=== PATIENT | male | born 1965 | race Caucasian/White ===

== ENCOUNTER → 2020-07-14 10:40 | Outpatient (CLI) | payer OTHER, SELFPAY ==
--- NOTE | ~2020-07-14 | XR_ITS ---
EXAMINATION: XR chest 2V DATE: 07/14/2020 11:31 INDICATION: Malignant neoplasm of bladder and kidney. TECHNIQUE: Frontal and lateral views of the chest were obtained. COMPARISON: Chest 2 views 08/06/2019, CT abdomen and pelvis 07/14/2020 FINDINGS: The chest demonstrates clear lungs without pneumonia, pleural effusion, or pneumothorax. Th e heart size is normal. IMPRESSION: 1. No acute cardiopulmonary disease. Reviewed, dictated and finalized at location B. CAL [employer] MANUFACTURING TECH
--- NOTE | ~2020-07-14 | CT_ITS ---
EXAMINATION: CT abdomen pelvis wo/w con DATE: 07/14/2020 11:32 INDICATION: Transitional cell cancer of right kidney. TECHNIQUE: Computed tomography (CT) of the abdomen and pelvis was performed without and with intraven ous contrast using a total of 130 mL Omnipaque-350 intravenous contrast with a double-bolus technique for simultaneous opacification of the renal parenchyma and renal collecting system. Automated exposu re control and iterative reconstruction technique were employed. The dose-length product was 2590.83 mGy-cm. COMPARISON: CT abdomen and pelvis 08/06/2019, 03/13/2016 FINDINGS: The visualized portions of the lung bases demonstrate minimal atelectasis. No pleural effusion. The h eart size is normal. No pericardial effusion. There is diffuse hepatic steatosis. Calcifications in t he liver and spleen are consistent with old granulomatous disease. The gallbladder is normal. There a re calcifications in the tail of the pancreas, consistent with chronic pancreatitis. The adrenal glan ds are normal. There are changes of right nephrectomy. Left kidney is normal. There is no urolithiasi s. Left ureter is well opacified and is normal. The prostate is mildly enlarged. There are small bila teral inguinal hernias containing fat. There is diverticulosis of the colon without evidence of diver ticulitis. There are no dilated loops of bowel. There is mild periportal lymphadenopathy, stable from 03/13/2016, likely reactive. There is no free intraperitoneal fluid. There is mild thoracolumbar spon dylosis. IMPRESSION: 1. No evidence of metastatic disease. Reviewed, dictated and finalized at location B. ING MANAGER
[2020-07-14 11:02] LABS: Estimated Glomerular Filt Rate 57
== END ==
PROVIDERS: Visit Provider Urology
DX: Z85.51 Personal history of malignant neoplasm of bladder (principal)
CPT/HCPCS: 71046; 74178; Q9967

== ENCOUNTER 2020-12-12 10:58 | Outpatient (CLI) | payer OTHER, SELFPAY | END 2020-12-12 10:59 | disposition home or self-care (01) | LOC: ANHCOVIDVC 10:58 | PROVIDERS: PCP Family Medicine | DX: Z23 Encounter for immunization (principal) | CPT/HCPCS: 0001A; 91300 ==

== ENCOUNTER 2021-01-02 10:59 | Outpatient (CLI) | payer OTHER, SELFPAY | END 2021-01-02 11:00 | disposition home or self-care (01) | LOC: ANHCOVIDVC 11:00 | PROVIDERS: PCP Family Medicine | DX: Z23 Encounter for immunization (principal) | CPT/HCPCS: 0002A; 91300 ==

== ENCOUNTER 2021-07-17 08:25 | Outpatient (CLI) | payer OTHER, SELFPAY ==
--- NOTE | ~2021-07-17 | CT_ITS ---
EXAMINATION: CT abdomen pelvis wo/w con EXAM DATE: 07/17/2021 09:48 INDICATION: History of malignant bladder cancer. Kidney cancer. TECHNIQUE: Spiral CT of the abdomen and pelvis was performed without contrast. The patient was then injected with small bolus intravenous Omnipaque 350, followed by delay of approximately 10 minutes to allow collecting system to opacify. A post contrast scan abdomen and pelvis was performed during inj ection of remaining contrast. A total of 130 cc intravenous contrast was administered. The dose-delvin th product (DLP) for this examination was 3062.43 mGy-cm. The exposure was tailored according to pat ient size (auto mA exposure control), and iterative reconstruction (ASIR) was used as additional dose reduction technique. Comparison is made to prior examination from 07/14/2020. FINDINGS: Status post right-sided nephrectomy. Stable postoperative surgical bed. There is punctate left inferior calyceal nonobstructing stone. No left hydronephrosis. The calyces and opacified port ions of ureters are unremarkable, without filling defects or focal suspicious strictures. The bladde r is unremarkable. The prostate is unremarkable. Several pancreatic tail calcifications, chronic pancreatitis. The liver, spleen, adrenal glands are u nremarkable. Gallbladder is unremarkable. No biliary obstruction. Several borderline sized peripor nena lymph nodes are stable, probably reactive. There is mild scattered arteriosclerotic disease. Tin y subumbilical fat-containing hernias. The appendix is not positively visualized. There is no pericecal inflammatory change to suggest appe ndicitis. The stomach and small bowel are unremarkable. There is expected amount of colonic stool. There is mild sigmoid colonic diverticulosis. There is no adjacent inflammatory change to suggest d iverticulitis. The heart is normal in size. There are no pericardial or pleural effusions. The lung bases are unremarkable. There are no osteoblastic or osteolytic lesions identified. IMPRESSION: 1. Stable surgical changes from right-sided nephrectomy. 2. Mild colonic diverticulosis. 3. Chronic pancreatitis. Reviewed, dictated and finalized at location B. [employer] OPENING [employer] PICKING
--- NOTE | ~2021-07-17 | XR_ITS ---
XR chest 2V DATE: 07/17/2021 08:42 INDICATION: Malignant bladder lesion TECHNIQUE: PA and lateral views COMPARISON: 07/14/2020 2 view chest FINDINGS: Normal heart size. No hilar or mediastinal enlargement. No pulmonary infiltrate or consolid ation, pleural effusion or pulmonary vascular congestion or pneumothorax. Surgical clips overlie the upper abdomen. IMPRESSION: No active cardiopulmonary disease Reviewed, dictated and finalized at location A. NESS NURSE RN
[2021-07-17 09:27] LABS: Estimated Glomerular Filt Rate > 60
== END 2021-07-17 08:26 | disposition home or self-care (01) ==
PROVIDERS: PCP Family Medicine; Visit Provider Urology
DX: Z85.51 Personal history of malignant neoplasm of bladder (principal); K57.30 Diverticulosis of large intestine without perforation or abscess without bleeding; K85.90 Acute pancreatitis without necrosis or infection, unspecified
CPT/HCPCS: 71046; 74178; Q9967

== ENCOUNTER 2021-11-22 09:01 | Outpatient (CLI) | payer OTHER, SELFPAY ==
[2021-11-22 12:46] LABS: Free T4 Free Thyroxine 1.43 ng/mL (0.78-2.19)
[2021-11-22 13:01] LABS: Thyroid Stimulating Hormone < 0.015 uIU/mL (0.465-4.680)
== END 2021-11-22 09:02 | disposition home or self-care (01) ==
PROVIDERS: PCP Family Medicine; Referring Provider Internal Medicine Endocrinology, Diabetes & Metabolism; Visit Provider Internal Medicine Endocrinology, Diabetes & Metabolism
DX: E05.90 Thyrotoxicosis, unspecified without thyrotoxic crisis or storm (principal); E04.9 Nontoxic goiter, unspecified
CPT/HCPCS: 36415; 84439; 84443; 84481

== ENCOUNTER 2022-02-22 11:45 | Outpatient (CLI) | payer OTHER, SELFPAY ==
[2022-02-22 13:16] LABS: Free T4 Free Thyroxine 0.64 ng/mL (0.78-2.19)
[2022-02-22 13:57] LABS: Thyroid Stimulating Hormone 0.456 uIU/mL (0.465-4.680)
[2022-02-27 14:49] LABS: Thyroid Stimulating Immunoglob 332 % baseline (<140)
== END 2022-02-22 11:46 | disposition home or self-care (01) ==
LOC: ANHWCLAB 11:47
PROVIDERS: PCP Family Medicine; Referring Provider Internal Medicine Endocrinology, Diabetes & Metabolism; Visit Provider Internal Medicine Endocrinology, Diabetes & Metabolism
DX: E05.90 Thyrotoxicosis, unspecified without thyrotoxic crisis or storm (principal)
CPT/HCPCS: 36415; 84439; 84443; 84445

== ENCOUNTER 2022-09-09 09:39 | Emergency (ER) | payer OTHER, SELFPAY ==
[2022-09-09 09:44] VITALS: BP 155/101; PULSE 73; RESP 16; TEMP 36.8; O2SAT 100
--- NOTE | 2022-09-09 09:57 | ED.DENTAL ---
HPI - Dental/Oral General Chief complaint: Dental/Oral Stated complaint: Mouth Sore Time Seen by Provider: 09/09/22 10:01 History of Present Illness HPI Narrative: Patient states he had a root canal done 4 days ago and feels that the dentist irritated the top of his mouth now. Patient has tenderness to the top of his mouth. Related Data Home Medications Medication Instructions Recorded Confirmed cyanocobalamin (vitamin B-12) 1,000 mcg PO DAILY 07/21/19 09/09/22 1,000 mcg tablet (Vitamin B-12) cholecalciferol (vitamin D3) 25 1,000 unit PO DAILY 11/17/19 09/09/22 mcg (1,000 unit) capsule Allergies Allergy/AdvReac Type Severity Reaction Status Date / Time No Known Allergies Allergy Verified 09/09/22 09:51 Review of Systems Review of Systems: CONSTITUTIONAL: Denies fever, chills, or sweats. EYES: Denies visual changes, redness, or discharge. ENT: Denies rhinorrhea, congestion, sore throat, or otalgia. CARDIOVASCULAR: Denies chest pain, palpitations, or edema. RESPIRATORY: Denies cough or dyspnea. GASTROINTESTINAL: Denies abdominal pain, nausea, vomiting, or diarrhea. GENITOURINARY: Denies dysuria or hematuria. SKIN: Denies rash or itching. MUSCULOSKELETAL: Denies back pain, joint pain, or myalgia. NEUROLOGIC: Denies headache, numbness, or weakness. PSYCHIATRIC: Denies anxiety or depression. [facility] Past Medical History Medical History (Updated 09/09/22 @ 10:09 by DEMETRICE Jaramillo) Acute non-recurrent maxillary sinusitis Asthma BMI 32.0-32.9,adult BMI 33.0-33.9,adult BMI 34.0-34.9,adult Cancer Colon cancer screening (~05/25/19) Cologuard screening was negative on 05/25/2019. Cologuard screening on 08/07/2022 was positive. The patient will need colonoscopy. Dyshidrotic eczema Elevated liver enzymes AST 29 and ALT 48 06/19/2021. GGT 34, AST 27, ALT 40 on 06/25/2022. Elevated TSH Encounter for prostate cancer screening PSA 0.26 on 06/19/2021. PSA normal at 0.2 on 06/25/2022. Folic acid deficiency (06/25/22) level low at 4.5 on 06/25/2022. H/O: HTN (hypertension) Hyperthyroidism (06/19/21) TSH less than 0.01 with free T4 1.5 and T3 total 257 on 06/19/2021 Leukocytosis WBC 12.0 on 06/19/2021. WBC 10.7 on 06/25/2022. Mixed hyperlipidemia Total cholesterol 181, triglycerides 271, HDL 29 and LDL 113 on 06/25/2022. Obesity (BMI 30.0-34.9) Pharyngitis Positive colorectal cancer screening using Cologuard test Recurrent boils Renal insufficiency, mild BUN 9 with creatinine 0.99 on 06/25/2022. Seasonal allergic rhinitis Vitamin B12 deficiency anemia Level normal at 726 with hemoglobin 16.5 and folic acid 4.2 on 06/25/2022. Family History Family History Father Patient's father is , Onset Age: 78 Family history of cardiovascular disease Grandparent Family history of cardiovascular disease, Onset Age: 60 Family history of malignant neoplasm Family history of dementia Family history of Hodgkin's lymphoma Other Thyroid disease Social History Social History Smoking packs per day: 1 Smoking cigarettes per day: 20.0 Years smoked: 15 Smoking pack-years: 15.00 Smoking status: Current every day smoker Alcohol intake: never Substance use: never Substance use type: does not use Comments At time of signature, agree with nursing past medical, surgical, social and family history. There is no relevant family history pertinent to the presenting complaint Exam Narrative: GENERAL: Well-appearing, well-nourished, and in no acute distress. HEAD: Normocephalic, atraumatic. EYES: PERRLA and EOMI. ENT: Nares clear, no rhinorrhea or epistaxis. Mucous membranes moist. NO MAURICE APICAL SWELLING, TOOTH TENDER TO PALPATION. NO FACIAL SWELLING. NO TRISMUS. ABLE TO OPEN MOUTH FULLY. NO NECK SWELLING OR MARY JO'S ANGINA. NO ABSCESS TO BE DRAINED. Slightly swollen are
== END 2022-09-09 10:10 | disposition home or self-care (01) ==
PROVIDERS: Emergency Provider Nurse Practitioner Family
DX: K04.7 Periapical abscess without sinus (principal); K08.89 Other specified disorders of teeth and supporting structures; K12.0 Recurrent oral aphthae; F17.210 Nicotine dependence, cigarettes, uncomplicated; I10 Essential (primary) hypertension; E05.90 Thyrotoxicosis, unspecified without thyrotoxic crisis or storm; E78.2 Mixed hyperlipidemia; E66.9 Obesity, unspecified; Z68.30 Body mass index [BMI] 30.0-30.9, adult
CPT/HCPCS: 99213; G0463

== ENCOUNTER 2022-09-21 12:31 | Emergency (ER) | payer OTHER, SELFPAY ==
--- NOTE | ~2022-09-21 | US_ITS ---
US venous doppler [facility] DATE: 09/21/2022 13:35 INDICATION: Redness and swelling of left lower extremity TECHNIQUE: Real-time and color flow imaging and Doppler analysis of the veins of the left lower extre mity COMPARISON: None FINDINGS: The left greater saphenous vein is patent. There is spontaneous and phasic flow and normal augmentation and color flow signal and normal compression of the deep veins of the left lower extremi ty. IMPRESSION: No evidence of deep venous thrombosis of left lower extremity Reviewed, dictated and finalized at Location A. Reviewed, dictated and finalized at location B. ISITION PROFESSIONAL
[2022-09-21 12:37] VITALS: BP 149/92; PULSE 64; RESP 16; TEMP 36.1; O2SAT 99
--- NOTE | 2022-09-21 12:49 | ED.EXTPRO ---
HPI - Extremity Problem General Chief complaint: Extremity Problem,Nontraumatic Stated complaint: L leg pain Time Seen by Provider: 09/21/22 12:43 History of Present Illness HPI Narrative: Patient is a 57-year-old male here for evaluation of a lesion on his left lower extremity. Patient states the lesion is red, swollen and painful. It first showed up about 2 weeks ago and has increased in size and severity since. He denies known injury to the leg or break in skin integrity. He has had no fevers, chills, nausea or vomiting. He called his PCP today who recommended ED eval, reportedly to rule out a blood clot. Related Data Home Medications Medication Instructions Recorded Confirmed cyanocobalamin (vitamin B-12) 1,000 mcg PO DAILY 07/21/19 09/18/22 1,000 mcg tablet (Vitamin B-12) cholecalciferol (vitamin D3) 25 1,000 unit PO DAILY 11/17/19 09/18/22 mcg (1,000 unit) capsule fluticasone propionate 50 1 spray intranasal BID 09/18/22 09/18/22 mcg/actuation nasal spray,suspension methimazole 5 mg tablet 5 mg PO DAILY 09/18/22 09/18/22 Allergies Allergy/AdvReac Type Severity Reaction Status Date / Time No Known Allergies Allergy Verified 09/21/22 12:55 Review of Systems Review of Systems: Gen.: Denies fevers or chills Eyes: Denies eye pain or visual change ENT: Denies congestion Respiratory: Denies shortness of breath or cough CV: Denies chest pain or palpitations GI: Denies abdominal pain nausea, emesis or diarrhea denies burning, urgency, frequency or hematuria Musculoskeletal: Reports lesion to left lower extremity Neuro: Denies numbness, tingling, weakness or focal weakness Skin: Denies rash Except as documented, all other systems reviewed and negative [facility] Past Medical History Medical History Acute non-recurrent maxillary sinusitis Asthma BMI 32.0-32.9,adult BMI 33.0-33.9,adult BMI 34.0-34.9,adult Cancer Colon cancer screening (~05/25/19) Cologuard screening was negative on 05/25/2019. Cologuard screening on 08/07/2022 was positive. The patient will need colonoscopy. Dyshidrotic eczema Elevated liver enzymes AST 29 and ALT 48 06/19/2021. GGT 34, AST 27, ALT 40 on 06/25/2022. Elevated TSH Encounter for prostate cancer screening PSA 0.26 on 06/19/2021. PSA normal at 0.2 on 06/25/2022. Folic acid deficiency (06/25/22) level low at 4.5 on 06/25/2022. H/O: HTN (hypertension) Hyperthyroidism (06/19/21) TSH less than 0.01 with free T4 1.5 and T3 total 257 on 06/19/2021 Leukocytosis WBC 12.0 on 06/19/2021. WBC 10.7 on 06/25/2022. Mixed hyperlipidemia Total cholesterol 181, triglycerides 271, HDL 29 and LDL 113 on 06/25/2022. Obesity (BMI 30.0-34.9) Pharyngitis Positive colorectal cancer screening using Cologuard test Recurrent boils Renal insufficiency, mild BUN 9 with creatinine 0.99 on 06/25/2022. Seasonal allergic rhinitis Vitamin B12 deficiency anemia Level normal at 726 with hemoglobin 16.5 and folic acid 4.2 on 06/25/2022. Family History Family History (Reviewed 02/22/22 @ 11:18 by Gabriel Rosa, [facility]) Father Patient's father is , Onset Age: 78 Family history of cardiovascular disease Grandparent Family history of cardiovascular disease, Onset Age: 60 Family history of malignant neoplasm Family history of dementia Family history of Hodgkin's lymphoma Other Thyroid disease Social History Social History Smoking packs per day: 1 Smoking cigarettes per day: 20.0 Years smoked: 10 Smoking pack-years: 10.00 Smoking status: Current every day smoker Tobacco type: cigarettes Alcohol intake: current Alcohol use details: 2 beers monthly Substance use: never Substance use type: does not use Living arrangements: with family Spiritual care concerns: No Exam Narrative: APPEARANCE: Well appearing, no pain in
== END 2022-09-21 14:41 | disposition home or self-care (01) ==
PROVIDERS: Emergency Provider Physician Assistant; PCP Family Medicine
DX: L03.116 Cellulitis of left lower limb (principal); I10 Essential (primary) hypertension; F17.210 Nicotine dependence, cigarettes, uncomplicated
CPT/HCPCS: 10060; 93971; 99284

== ENCOUNTER 2022-10-02 00:13 | Day surgery (SDC) | payer OTHER, SELFPAY ==
[2022-09-18 11:24] VITALS: BMI 31.5
[2022-10-02 09:45] VITALS: BP 127/85; PULSE 90; RESP 20; TEMP 35.6; O2SAT 97
[2022-10-02] MEDS: LACTATED RINGERS 1,000 ML 150 ML IV CONT (09:47)
--- NOTE | 2022-10-02 10:42 | WPDANESEPPF ---
Anes - Initial Pre Proc Eval Procedure: Operation Date: 10/02/22 11:00 Proposed Procedures p Colonoscopy - Brett Thomas MD Date/Time: 10/02/22 10:42 Surgeon: Brett Thomas MD Pre Op Diagnosis: positive cologuard Patient Data Age: 57 Gender: M Height: 1.88 m Weight: 116.2 kg Last Vital Signs Temp 96.1 F L 10/02/22 09:45 Pulse 90 10/02/22 09:45 Resp 20 10/02/22 09:45 BP 127/85 10/02/22 09:45 Pulse Ox 97 10/02/22 09:45 O2 Del Method Room Air 10/02/22 09:45 Allergies Allergy/AdvReac Type Severity Reaction Status Date / Time No Known Allergies Allergy Verified 10/02/22 09:43 Home Medications Medication Instructions Recorded Confirmed Type cyanocobalamin (vitamin B-12) 1,000 mcg PO DAILY 07/21/19 10/02/22 History 1,000 mcg tablet (Vitamin B-12) cholecalciferol (vitamin D3) 25 1,000 unit PO DAILY 11/17/19 10/02/22 History mcg (1,000 unit) capsule albuterol sulfate 90 mcg/actuation 2 puff inhalation Q4H PRN 07/20/21 10/02/22 Rx aerosol inhaler shortness of breath or wheezing #25.5 grams montelukast 10 mg tablet 10 mg PO DAILY #90 tabs 10/30/21 10/02/22 Rx lisinopril 40 mg tablet 40 mg PO DAILY #90 tabs 01/09/22 10/02/22 Rx quetiapine 50 mg tablet 50 mg PO . q.h.s. #30 tabs 03/26/22 10/02/22 Rx amlodipine 5 mg tablet 5 mg PO DAILY #90 tabs 05/08/22 10/02/22 Rx folic acid 1 mg tablet 1 mg PO DAILY #90 tabs 07/24/22 10/02/22 Rx escitalopram oxalate 20 mg tablet 20 mg PO DAILY #90 tabs 08/13/22 10/02/22 Rx fluticasone propionate 50 1 spray intranasal BID 09/18/22 10/02/22 History mcg/actuation nasal spray,suspension methimazole 5 mg tablet 5 mg PO DAILY 09/18/22 10/02/22 History Patient hx anesthesia problems: none Family hx anesthesia problems: none Results Review: All pre-operative results and documents have been reviewed as part of the pre-operative evaluation. [facility] Past Medical History Medical History Acute non-recurrent maxillary sinusitis Asthma BMI 32.0-32.9,adult BMI 33.0-33.9,adult BMI 34.0-34.9,adult Cancer Colon cancer screening (~05/25/19) Cologuard screening was negative on 05/25/2019. Cologuard screening on 08/07/2022 was positive. The patient will need colonoscopy. Dyshidrotic eczema Elevated liver enzymes AST 29 and ALT 48 06/19/2021. GGT 34, AST 27, ALT 40 on 06/25/2022. Elevated TSH Encounter for prostate cancer screening PSA 0.26 on 06/19/2021. PSA normal at 0.2 on 06/25/2022. Folic acid deficiency (06/25/22) level low at 4.5 on 06/25/2022. H/O: HTN (hypertension) Hyperthyroidism (06/19/21) TSH less than 0.01 with free T4 1.5 and T3 total 257 on 06/19/2021 Leukocytosis WBC 12.0 on 06/19/2021. WBC 10.7 on 06/25/2022. Mixed hyperlipidemia Total cholesterol 181, triglycerides 271, HDL 29 and LDL 113 on 06/25/2022. Obesity (BMI 30.0-34.9) Pharyngitis Positive colorectal cancer screening using Cologuard test Recurrent boils Renal insufficiency, mild BUN 9 with creatinine 0.99 on 06/25/2022. Seasonal allergic rhinitis Vitamin B12 deficiency anemia Level normal at 726 with hemoglobin 16.5 and folic acid 4.2 on 06/25/2022. Family History Family History Father Patient's father is , Onset Age: 78 Family history of cardiovascular disease Grandparent Family history of cardiovascular disease, Onset Age: 60 Family history of malignant neoplasm Family history of dementia Family history of Hodgkin's lymphoma Other Thyroid disease Social History Social History (Reviewed 07/24/22 @ 08:55 by Fouzia Hollis, [facility]) Smoking packs per day: 1 Smoking cigarettes per day: 20.0 Years smoked: 10 Smoking pack-years: 10.00 Smoking status: Current every day smoker Tobacco type: cigarettes Alcohol intake: current Alcohol use details: 2 beers monthly Palafox
--- NOTE | 2022-10-02 10:44 | PM.HPGS ---
History of Present Illness History of Present Illness Consent: Risks, benefits, and alternatives have been discussed and questions answered. Patient agrees to proceed with procedure. Chief complaint: positive cologuard Narrative: Florentin Burgos is a 57 year old male here for first colonoscopy, had + cologuard Review of Systems Constitutional: Constitutional: Denies headache(s) and Denies weakness Eyes: Eyes: Denies blurry vision ENT: Reports Normal hearing present, Denies headache(s) and Denies neck pain Cardiovascular: Cardiovascular: Denies chest pain and Denies dyspnea Respiratory: Respiratory: Denies dyspnea Gastrointestinal: Gastrointestinal: Reports no additional gastrointestinal complaints Genitourinary: Genitourinary: Denies dysuria Musculoskeletal: Musculoskeletal: Denies neck pain Integumentary/Breasts: Skin/Breast: Denies dry skin Neurologic: Reports Normal hearing present, Denies headache(s) and Denies weakness Psychiatric: Psychiatric: Denies anxiety Endocrine: Endocrine: Denies change in body appearance Hematologic/Lymphatic: Hematologic/Lymphatic: Denies easy bleeding Allergic/Immunologic: Allergic/Immunologic: Denies urticaria PMFSH Past Medical History Medical History Acute non-recurrent maxillary sinusitis Asthma BMI 32.0-32.9,adult BMI 33.0-33.9,adult BMI 34.0-34.9,adult Cancer Colon cancer screening (~05/25/19) Cologuard screening was negative on 05/25/2019. Cologuard screening on 08/07/2022 was positive. The patient will need colonoscopy. Dyshidrotic eczema Elevated liver enzymes AST 29 and ALT 48 06/19/2021. GGT 34, AST 27, ALT 40 on 06/25/2022. Elevated TSH Encounter for prostate cancer screening PSA 0.26 on 06/19/2021. PSA normal at 0.2 on 06/25/2022. Folic acid deficiency (06/25/22) level low at 4.5 on 06/25/2022. H/O: HTN (hypertension) Hyperthyroidism (06/19/21) TSH less than 0.01 with free T4 1.5 and T3 total 257 on 06/19/2021 Leukocytosis WBC 12.0 on 06/19/2021. WBC 10.7 on 06/25/2022. Mixed hyperlipidemia Total cholesterol 181, triglycerides 271, HDL 29 and LDL 113 on 06/25/2022. Obesity (BMI 30.0-34.9) Pharyngitis Positive colorectal cancer screening using Cologuard test Recurrent boils Renal insufficiency, mild BUN 9 with creatinine 0.99 on 06/25/2022. Seasonal allergic rhinitis Vitamin B12 deficiency anemia Level normal at 726 with hemoglobin 16.5 and folic acid 4.2 on 06/25/2022. Family History Family History Father Patient's father is , Onset Age: 78 Family history of cardiovascular disease Grandparent Family history of cardiovascular disease, Onset Age: 60 Family history of malignant neoplasm Family history of dementia Family history of Hodgkin's lymphoma Other Thyroid disease Social History Social History Smoking packs per day: 1 Smoking cigarettes per day: 20.0 Years smoked: 10 Smoking pack-years: 10.00 Smoking status: Current every day smoker Tobacco type: cigarettes Alcohol intake: current Alcohol use details: 2 beers monthly Substance use: never Substance use type: does not use Living arrangements: with family Spiritual care concerns: No Meds Home Medications and Allergies Home Medications Medication Instructions Recorded Confirmed Type cyanocobalamin (vitamin B-12) 1,000 mcg PO DAILY 07/21/19 10/02/22 History 1,000 mcg tablet (Vitamin B-12) cholecalciferol (vitamin D3) 25 1,000 unit PO DAILY 11/17/19 10/02/22 History mcg (1,000 unit) capsule albuterol sulfate 90 mcg/actuation 2 puff inhalation Q4H PRN 07/20/21 10/02/22 Rx aerosol inhaler shortness of breath or wheezing #25.5 grams montelukast 10 mg tablet 10 mg PO DAILY #90 tabs 10/30/21 10/02/22 Rx lisinopril 40 mg tablet 40 mg PO DAILY
[2022-10-02 11:19] VITALS: BP 92/62; PULSE 82; RESP 24; O2SAT 92
[2022-10-02 11:29] VITALS: BP 98/75; PULSE 80; RESP 16; O2SAT 93
[2022-10-02 11:39] VITALS: BP 103/71; PULSE 65; RESP 16; O2SAT 96
== END 2022-10-02 11:53 | disposition home or self-care (01) ==
PROVIDERS: PCP Family Medicine; Visit Provider Internal Medicine Gastroenterology
PROC: 0DJD8ZZ Inspection of Lower Intestinal Tract, Via Natural or Artificial Opening Endoscopic (ICD-10-PCS; CPT 45378; principal; 2022-10-02 11:00)
DX: R19.5 Other fecal abnormalities (principal); K63.5 Polyp of colon; K62.1 Rectal polyp; K64.8 Other hemorrhoids; I10 Essential (primary) hypertension; J45.909 Unspecified asthma, uncomplicated; L30.1 Dyshidrosis [pompholyx]; E05.90 Thyrotoxicosis, unspecified without thyrotoxic crisis or storm; E78.2 Mixed hyperlipidemia; D51.3 Other dietary vitamin B12 deficiency anemia; E66.9 Obesity, unspecified; Z68.32 Body mass index [BMI] 32.0-32.9, adult; F17.210 Nicotine dependence, cigarettes, uncomplicated
CPT/HCPCS: 45385; 88305; J2704; J7120

== ENCOUNTER 2023-03-19 11:37 | Outpatient (CLI) | payer OTHER, SELFPAY ==
[2023-03-19 13:47] LABS: Free T4 Free Thyroxine 0.93 ng/mL (0.78-2.19)
[2023-03-25 16:42] LABS: Triiodothyronine T3 Free 2.8 pg/mL (2.3-4.2)
== END 2023-03-19 11:38 | disposition home or self-care (01) ==
LOC: ANHWCLAB 11:38
PROVIDERS: PCP Family Medicine; Visit Provider Internal Medicine Endocrinology, Diabetes & Metabolism
DX: E05.90 Thyrotoxicosis, unspecified without thyrotoxic crisis or storm (principal); E04.9 Nontoxic goiter, unspecified
CPT/HCPCS: 36415; 84439; 84443; 84481

== ENCOUNTER 2024-12-09 15:00 | Emergency (ER) | payer OTHER, SELFPAY ==
--- NOTE | ~2024-12-09 | XR_ITS ---
EXAM/PROCEDURE: XR chest 2V - 12/09/2024 15:30 CDT HISTORY: 59 years old Male with cough x 3 days, hx of asthma TECHNIQUE: Two view(s) of the chest. COMPARISON: None available. FINDINGS: LUNGS/ PLEURA: No focal consolidation. No appreciable pneumothorax or large pleural effusion. HEART/ MEDIASTINUM: Heart appears normal in size. BONES: No acute osseous abnormality. OTHER: Visualized upper abdomen is unremarkable. IMPRESSION: No acute process. Reviewed, dictated and finalized at location A. IMPRESSION: No acute process.
[2024-12-09 15:20] VITALS: BP 136/85; PULSE 82; RESP 18; TEMP 36.9; O2SAT 97
[2024-12-09 16:12] LABS: EDCOVIDSCREEN Negative (Negative); EDINFLUASCREEN Negative (Negative); EDINFLUBSCREEN Negative (Negative)
--- NOTE | 2024-12-09 16:14 | ED_ITS ---
HPI - URI/Sore Throat General Chief Complaint: Upper Respiratory Infection Stated Complaint: Cough/Chills/Sinus Time Seen by Provider: 12/09/24 15:55 Source: patient and RN notes reviewed Mode of arrival: ambulatory Limitations: no limitations History of Present Illness HPI Narrative: 59-year-old male presents Express Care complaining of upper respiratory symptoms for 8 days. Patient had a sore throat, cough, congestion. Symptoms were improving however about 2 days ago patient stated his cough got worse he started developing chest congestion and some shortness of breath. Patient states that he has pain with inspiration. Patient denies any chest pain or pain with exertion. Patient has is his pain is reproducible to palpating his sternum. Patient states he is coughing some phlegm up but says that is white and thick. Patient is a pack-a-day smoker for the last 10 years. Patient has a history of hypertension, bladder cancer, and nephrectomy. Patient denies any history of COPD. Related Data Home Medications ?Medication ?Instructions ?Recorded ?Confirmed ?Last Taken ?Type cyanocobalamin (vitamin B-12) 1,000 mcg PO DAILY 07/21/19 03/16/24 Unknown History 1,000 mcg tablet (Vitamin B-12) cholecalciferol (vitamin D3) 25 1,000 unit PO DAILY 11/17/19 03/16/24 Unknown History mcg (1,000 unit) capsule Allergies Allergy/AdvReac Type Severity Reaction Status Date / Time No Known Allergies Allergy Verified 12/09/24 15:07 Review of Systems Review of Systems: CONSTITUTIONAL: Denies fever, chills, or sweats. EYES: Denies visual changes, redness, or discharge. ENT: Denies rhinorrhea, congestion, sore throat, or otalgia. CARDIOVASCULAR: Denies chest pain, palpitations,, syncope or edema. RESPIRATORY: Positive for cough or dyspnea. GASTROINTESTINAL: Denies abdominal pain, nausea, vomiting, or diarrhea. GENITOURINARY: Denies dysuria or hematuria. SKIN: Denies rash or itching. MUSCULOSKELETAL: Denies back pain, joint pain, or myalgia. NEUROLOGIC: Denies headache, numbness, or weakness. PSYCHIATRIC: Denies anxiety or depression. All other systems reviewed are negative, except as documented in HPI. [facility] Past Medical History Medical History Herpes zoster (~01/20/23) right T10 dermatome Acute bronchitis Polyp of colon (10/02/22) 4 polyps of the descending colon, 2 polyps of the sigmoid colon, 3 polyps in the rectum on 10/02/2022 with recheck in 2 years. Positive colorectal cancer screening using Cologuard test Colon cancer screening (~05/25/19) Cologuard screening was negative on 05/25/2019. Cologuard screening on 08/07/2022 was positive. The patient will need colonoscopy. Folic acid deficiency (06/25/22) level low at 4.5 on 06/25/2022. Level normal at 24 on 02/25/2023. Folic acid greater than 24 with hemoglobin 16.8 on 07/29/2023. Pharyngitis BMI 33.0-33.9,adult Obesity (BMI 30.0-34.9) Acute non-recurrent maxillary sinusitis H/O: HTN (hypertension) Cancer Asthma Seasonal allergic rhinitis BMI 32.0-32.9,adult Hyperthyroidism (06/19/21) TSH less than 0.01 with free T4 1.5 and T3 total 257 on 06/19/2021. TSH 2.89 with free T4 0.93 on 03/19/2023. TSH 2.89 with free T4 0.93 and T3 total 2.8 on 07/29/2023. TSH 7.21 with free T4 0.8 and free T3 2.8 on 03/23/2024. Recurrent boils BMI 34.0-34.9,adult Elevated liver enzymes AST 29 and ALT 48 06/19/2021. GGT 34, AST 27, ALT 40 on 06/25/2022. AST 36 with ALT 50 on 07/29/2023. AST 35, ALT 40 on 03/23/2024. Renal insufficiency, mild BUN 9 with creatinine 0.99 on 06/25/2022. Elevated TSH Leukocytosis WBC 12.0 on 06/19/2021. WBC 10.7 on 06/25/2022. Mixed hyperlipidemia Total cholesterol 181, triglycerides 271, HDL 29 and LDL 113 on 06/25/2022. Cholesterol 200, triglycerides 219, HDL 34, LDL 130 with ratio of 5.9 on 02/25/2023. Cholesterol 205, triglycerides 317, HDL 33, LDL 127 with ratio 6.2 on 07/29/2023. Cholesterol 124, triglycerides 201, HDL 30, LDL 66 with ratio 4.1 on 03/23/2024. Encounter for prostate cancer screening PSA 0.26 on 06/19/2021. PSA normal at 0.2 on 06/25/2022. PSA 0.23 on 07/29/2023. Dyshidrotic eczema Vitamin B12 deficiency anemia Level normal at 726 with hemoglobin 16.5 and folic acid 4.2 on 06/25/2022. Level normal at 967 with folic acid 24 on 02/25/2023. Level normal at 967 on 07/29/2023. 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 Family History Family History Father Patient's father is , Onset Age: 78 Family history of cardiovascular disease Grandparent Family history of cardiovascular disease, Onset Age: 60 Family history of malignant neoplasm Family history of dementia Family history of Hodgkin's lymphoma Other Thyroid disease Social History Social History Smoking packs per day: 1 Smoking cigarettes per day: 20.0 Years smoked: 10 Smoking pack-years: 10.00 Smoking status: Current every day smoker Tobacco type: cigarettes Alcohol intake: current Alcohol use details: 2 beers monthly Substance use: never Substance use type: does not use Lack of Transportation: No Lack of Food: Never True Current Housing: I Have Housing Concerned About Future Housing: No Difficulty Paying Gas/Electric Bills: No Difficulty Paying for Meds: No Currently Unemployed: No Education: High School Diploma/GED Difficulty w/ Childcare or Family Care: No Living arrangements: with family Spiritual care concerns: No Comments At the time of my signature, I reviewed and agree with the nursing past medical, surgical, social, and family history. There is no relevant family history pertinent to the patient complaint. Exam Narrative: GENERAL: This is a well-nourished, well-developed adult, in no apparent distress. They are non ill-appearing, nontoxic appearing. HEAD: normocephalic, atraumatic. EYES: Sclera clear/white. Vision is grossly intact. EARS: External ears normal, auditory canals clear and without drainage, TMs normal without perforation. Hearing grossly intact. NOSE: External nose normal with no obvious nasal discharge, nares without redness, no rhinorrhea. THROAT: Mucous membranes moist, posterior pharynx clear. NECK: Neck supple, non-tender without lymphadenopathy, masses or thyromegaly. CARDIOVASCULAR: Regular rate and rhythm without murmurs, gallops, or rubs. RESPIRATORY: End expiratory wheezing present to the lower lobes. Lungs are coarse throughout. Breath sounds equal bilaterally. Normal respiratory rate, nonlabored breathing, respiratory distress SKIN: warm, Dry, intact with no suspicious lesions or rash, good texture and turgor. NEURO: awake, alert, and oriented to person, place and time. There were no obvious focal neurologic abnormalities. EXTREMITIES: No joint tenderness, effusion, or edema noted. Course Course Level of Care: Express Care Visit Vital Signs Vital signs: Vital Signs Temperature 98.4 F 12/09/24 15:20 Pulse Rate 82 12/09/24 15:20 Respiratory Rate 18 12/09/24 15:20 Blood Pressure 136/85 12/09/24 15:20 Pulse Oximetry 97 12/09/24 15:20 Temperature 98.4 F 12/09/24 15:20 Pulse Rate 82 12/09/24 15:20 Respiratory Rate 18 12/09/24 15:20 Blood Pressure 136/85 12/09/24 15:20 Pulse Oximetry 97 12/09/24 15:20 Oxygen Delivery Room Air 12/09/24 15:22 Reviewed MDM - URI/Sore Throat MDM Narrative Medical decision making narrative: COVID and influenza are negative. Chest x-ray was negative for pneumonia or acute findings. Since patient's symptoms were getting better and suddenly got worse, and has a history of smoking a pack a day for 10 years, and having thick sputum production I will treat him for a purulent bronchitis. Will treat empirically with doxycycline and prednisone. I will also given an albuterol inhaler as needed for cough and wheezing. He cannot take azithromycin because it will interact with his SSRIs. Discussed physical exam findings. Advised supportive measures and signs/symptoms to go to the ER. Pt is appropriate for outpt treatment and f/u. Differential Diagnosis Differential diagnosis: Likely bronchitis and other (Pneumonia, bronchiolitis, COPD exacerbation) Lab Data Attestation: I reviewed the patient's lab results. Labs: Lab Results 12/09/24 Range/Units 16:11 POC Influenza A Ag Negative (Negative) POC Influenza B Ag Negative (Negative) POC SARS CoV-2 Ag Negative (Negative) Imaging Data Radiologist's impression: FINDINGS: LUNGS/ PLEURA: No focal consolidation. No appreciable pneumothorax or large pleural effusion. HEART/ MEDIASTINUM: Heart appears normal in size. BONES: No acute osseous abnormality. OTHER: Visualized upper abdomen is unremarkable. IMPRESSION: No acute process. Critical Care Time Critical Care Time Critical Care Time: No Discharge Plan Discharge Clinical Impression: Purulent bronchitis Patient Disposition: Home Condition: Stable Instructions: Antibiotic Form, Acute Bronchitis (ED) Additional Instructions: Take doxycycline as directed and finish the course completely. Please wear sunscreen if you are going to be in the sun while on doxycycline. Please take the prednisone as directed and taken in the morning. Use the albuterol inhaler as needed for cough or wheezing. Recommend Flonase spray and Zyrtec (or Claritin/Tessa) over the counter Cough syrup may cause drowsiness; avoid driving or take it at night time. Tylenol ibuprofen as needed for pain or fevers. Symptomatic treatment includes: rest, fluids, and increase humidity of the air at home. Follow up with your primary care provider as needed in 1 week Go to the ER for worsening symptoms or concerns Patient Language: Canadian Prescriptions: New prednisone 50 mg tablet 50 mg PO DAILY 5 Days Qty: 5 0RF doxycycline monohydrate 100 mg capsule 100 mg PO BID 5 Days Qty: 10 0RF albuterol sulfate [Ventolin HFA] 90 mcg/actuation HFA aerosol inhaler 2 puff inhalation QID PRN (Reason: shortness of breath or wheezing) Qty: 8.5 0RF No Action cholecalciferol (vitamin D3) 25 mcg (1,000 unit) capsule 1,000 unit PO DAILY Airsupra 90-80 mcg/actuation HFA aerosol inhaler 2 inh inhalation ONCE Qty: 21.4 11RF Rx Instructions: as a single dose; may repeat up to 6 doses per day (12 inhalations) cyanocobalamin (vitamin B-12) [Vitamin B-12] 1,000 mcg tablet 1,000 mcg PO DAILY fluticasone propionate [Flonase Allergy Relief] 50 mcg/actuation spray,suspension 1 spray intranasal BID Qty: 48 3RF Rx Instructions: administer into each nostril lisinopril 40 mg tablet 40 mg PO DAILY Qty: 90 3RF quetiapine 50 mg tablet 50 mg PO . q.h.s. Qty: 30 11RF folic acid 1 mg tablet 1 mg PO DAILY Qty: 90 3RF amlodipine 5 mg tablet 5 mg PO DAILY Qty: 90 3RF atorvastatin 10 mg tablet 10 mg PO DAILY Qty: 90 3RF hydrochlorothiazide 12.5 mg tablet 12.5 mg PO . q.a.m. Qty: 90 3RF escitalopram oxalate 20 mg tablet 20 mg PO DAILY Qty: 90 3RF Follow-up/Referrals: Magdy Webber MD [Primary Care Provider] - Stand Alone Forms: Work/School Release IP Time of Disposition: 16:13
== END 2024-12-09 16:16 | disposition home or self-care (01) ==
PROVIDERS: Nurse Practitioner; PCP Family Medicine
DX: J40 Bronchitis, not specified as acute or chronic (principal); Z20.822 Contact with and (suspected) exposure to COVID-19; F17.210 Nicotine dependence, cigarettes, uncomplicated; I10 Essential (primary) hypertension; E05.90 Thyrotoxicosis, unspecified without thyrotoxic crisis or storm; E78.2 Mixed hyperlipidemia; D51.9 Vitamin B12 deficiency anemia, unspecified; E55.9 Vitamin D deficiency, unspecified; E66.9 Obesity, unspecified; J45.909 Unspecified asthma, uncomplicated; K63.5 Polyp of colon; Z85.51 Personal history of malignant neoplasm of bladder; Z85.528 Personal history of other malignant neoplasm of kidney; Z90.5 Acquired absence of kidney; Z68.32 Body mass index [BMI] 32.0-32.9, adult
CPT/HCPCS: 71046; 87426; 87804; 99213; G0463

== ENCOUNTER 2025-03-03 10:58 | Emergency (ER) | payer OTHER, SELFPAY ==
--- NOTE | ~2025-03-03 | XR_ITS ---
HISTORY: tender posterior ribs after lifting transmission COMPARISON: None TECHNIQUE: 3 views of the right ribs were performed along with a PA evaluation of the chest FINDINGS: No acute displaced fracture is appreciated. Bone mineralization is age-appropriate. The cardiomediastinal silhouette is unremarkable. The lungs are clear. IMPRESSION: No acute displaced right-sided rib fracture. The lungs are clear. Reviewed, dictated and finalized at location A.
[2025-03-03 11:11] VITALS: BP 147/101; PULSE 65; RESP 16; TEMP 36.2; O2SAT 97
--- NOTE | 2025-03-03 11:11 | ED_ITS ---
HPI - Back Pain/Injury General Chief Complaint: Back Pain/Injury Stated Complaint: BACK INJURY Time Seen by Provider: 03/03/25 11:11 Source: patient Mode of arrival: ambulatory Limitations: no limitations History of Present Illness HPI Narrative: 59-year-old male presents with complaint of right sided mid back pain for approximately 8 days. Patient reports pain started after lifting a transmission weighing approximately 300-400 lb. 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 Noticed pain starting several hours later. Ambulatory with steady gait. Pain is worse with movement and when taking a deep breath. Taking ibuprofen with no improvement of pain. All systems reviewed and negative except as noted above. Related Data Home Medications ?Medication ?Instructions ?Recorded ?Confirmed ?Last Taken ?Type cyanocobalamin (vitamin B-12) 1,000 mcg PO DAILY 07/21/19 03/16/24 Unknown History 1,000 mcg tablet (Vitamin B-12) cholecalciferol (vitamin D3) 25 1,000 unit PO DAILY 11/17/19 03/16/24 Unknown History mcg (1,000 unit) capsule Allergies Allergy/AdvReac Type Severity Reaction Status Date / Time No Known Allergies Allergy Verified 03/03/25 11:10 Review of Systems Review of Systems: CONSTITUTIONAL: Denies fever, chills, or sweats. EYES: Denies visual changes, redness, or discharge. ENT: Denies rhinorrhea, congestion, sore throat, or otalgia. CARDIOVASCULAR: Denies chest pain, palpitations, or edema. RESPIRATORY: Denies cough or dyspnea. GASTROINTESTINAL: Denies abdominal pain, nausea, vomiting, or diarrhea. GENITOURINARY: Denies dysuria or hematuria. SKIN: Denies rash or itching. MUSCULOSKELETAL: Reports right-sided mid back pain NEUROLOGIC: Denies headache, numbness, or weakness. PSYCHIATRIC: Denies anxiety or depression. All other systems reviewed are negative, except as documented in HPI. [facility] Past Medical History Medical History Herpes zoster (~01/20/23) right T10 dermatome Acute bronchitis Polyp of colon (10/02/22) 4 polyps of the descending colon, 2 polyps of the sigmoid colon, 3 polyps in the rectum on 10/02/2022 with recheck in 2 years. Positive colorectal cancer screening using Cologuard test Colon cancer screening (~05/25/19) Cologuard screening was negative on 05/25/2019. Cologuard screening on 08/07/2022 was positive. The patient will need colonoscopy. Folic acid deficiency (06/25/22) level low at 4.5 on 06/25/2022. Level normal at 24 on 02/25/2023. Folic acid greater than 24 with hemoglobin 16.8 on 07/29/2023. Pharyngitis BMI 33.0-33.9,adult Obesity (BMI 30.0-34.9) Acute non-recurrent maxillary sinusitis H/O: HTN (hypertension) Cancer Asthma Seasonal allergic rhinitis BMI 32.0-32.9,adult Hyperthyroidism (06/19/21) TSH less than 0.01 with free T4 1.5 and T3 total 257 on 06/19/2021. TSH 2.89 with free T4 0.93 on 03/19/2023. TSH 2.89 with free T4 0.93 and T3 total 2.8 on 07/29/2023. TSH 7.21 with free T4 0.8 and free T3 2.8 on 03/23/2024. Recurrent boils BMI 34.0-34.9,adult Elevated liver enzymes AST 29 and ALT 48 06/19/2021. GGT 34, AST 27, ALT 40 on 06/25/2022. AST 36 with ALT 50 on 07/29/2023. AST 35, ALT 40 on 03/23/2024. Renal insufficiency, mild BUN 9 with creatinine 0.99 on 06/25/2022. Elevated TSH Leukocytosis WBC 12.0 on 06/19/2021. WBC 10.7 on 06/25/2022. Mixed hyperlipidemia Total cholesterol 181, triglycerides 271, HDL 29 and LDL 113 on 06/25/2022. Cholesterol 200, triglycerides 219, HDL 34, LDL 130 with ratio of 5.9 on 02/25/2023. Cholesterol 205, triglycerides 317, HDL 33, LDL 127 with ratio 6.2 on 07/29/2023. Cholesterol 124, triglycerides 201, HDL 30, LDL 66 with ratio 4.1 on 03/23/2024. Encounter for prostate cancer screening PSA 0.26 on 06/19/2021. PSA normal at 0.2 on 06/25/2022. PSA 0.23 on 07/29/2023. Dyshidrotic eczema Vitamin B12 deficiency anemia Level normal at 726 with hemoglobin 16.5 and folic acid 4.2 on 06/25/2022. Level normal at 967 with folic acid 24 on 02/25/2023. Level normal at 967 on 07/29/2023. 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 Family History Family History Father Patient's father is , Onset Age: 78 Family history of cardiovascular disease Grandparent Family history of cardiovascular disease, Onset Age: 60 Family history of malignant neoplasm Family history of dementia Family history of Hodgkin's lymphoma Other Thyroid disease Social History Social History Smoking packs per day: 1 Smoking cigarettes per day: 20.0 Years smoked: 10 Smoking pack-years: 10.00 Smoking status: Current every day smoker Tobacco type: cigarettes Alcohol intake: current Alcohol use details: 2 beers monthly Substance use: never Substance use type: does not use Lack of Transportation: No Lack of Food: Never True Current Housing: I Have Housing Concerned About Future Housing: No Difficulty Paying Gas/Electric Bills: No Difficulty Paying for Meds: No Currently Unemployed: No Education: High School Diploma/GED Difficulty w/ Childcare or Family Care: No Living arrangements: with family Spiritual care concerns: No Comments At time of signature, agree with nursing past medical, surgical, social and family history. There is no relevant family history pertinent to the presenting complaint. Exam Narrative: GENERAL: This is a well-nourished, well-developed patient, in no apparent distress. HEAD: normocephalic, atraumatic. EYES: PERRL. Sclera clear/white. Vision is grossly intact. EARS: External ears normal NOSE: External nose normal NECK: Neck supple, non-tender without lymphadenopathy, masses or thyromegaly. CARDIOVASCULAR: Regular rate and rhythm without murmurs, gallops, or rubs. RESPIRATORY: Clear to auscultation. Breath sounds equal bilaterally. No wheezes, rales, or rhonchi. MUSCULOSKELETAL: tenderness to R posterior mid back, posterior and lateral ribs SKIN: warm, Dry, intact with no suspicious lesions or rash, good texture and turgor. NEURO: awake, alert, and oriented to person, place and time. There were no obvious focal neurologic abnormalities. EXTREMITIES: No joint tenderness, effusion, or edema noted. Course Course Level of Care: Express Care Visit Vital Signs Vital signs: Vital Signs Temperature 36.2 C L 03/03/25 11:11 Pulse Rate 65 03/03/25 11:11 Respiratory Rate 16 03/03/25 11:11 Blood Pressure 147/101 H 03/03/25 11:11 Pulse Oximetry 97 03/03/25 11:11 Temperature 36.2 C L 03/03/25 11:11 Pulse Rate 65 03/03/25 11:11 Respiratory Rate 16 03/03/25 11:11 Blood Pressure 147/101 H 03/03/25 11:11 Pulse Oximetry 97 03/03/25 11:11 Reviewed MDM - Back Pain/Injury MDM Narrative Medical decision making narrative: X-ray of right ribs negative for fracture. Discussed results with patient. Will treat patient with muscle relaxant, tramadol for muscle strain. Recommend ice, heat, stretching. Patient is well-appearing, nontoxic. No shortness of breath or chest pain. Ambulatory with steady gait. No neuro deficits. Imaging Data My impression: Agree with radiologist Radiologist's impression: HISTORY: tender posterior ribs after lifting transmission COMPARISON: None TECHNIQUE: 3 views of the right ribs were performed along with a PA evaluation of the chest FINDINGS: No acute displaced fracture is appreciated. Bone mineralization is age-appropriate. The cardiomediastinal silhouette is unremarkable. The lungs are clear. IMPRESSION: No acute displaced right-sided rib fracture. The lungs are clear. Discharge Plan Discharge Clinical Impression: Strain of muscle and tendon of back wall of thorax, initial encounter Patient Disposition: Home Condition: Stable Instructions: Thoracic Back Strain (ED) Additional Instructions: The x-ray of your right ribs was normal. Take medications as prescribed. Tramadol and methocarbamol both cause drowsiness. Do not drive while taking these medications. Alternate between ice and heat. Do stretching exercises as tolerated. If pain is not improving follow-up with your primary care physician. Patient Language: Chinese Prescriptions: New tramadol 50 mg tablet 50 mg PO Q6H PRN (Reason: pain) Qty: 20 0RF methocarbamol 750 mg tablet 750 mg PO Q8H PRN (Reason: muscle pain/spasm) Qty: 30 0RF No Action albuterol sulfate [Ventolin HFA] 90 mcg/actuation HFA aerosol inhaler 2 puff inhalation QID PRN (Reason: shortness of breath or wheezing) Qty: 8.5 0RF cholecalciferol (vitamin D3) 25 mcg (1,000 unit) capsule 1,000 unit PO DAILY Airsupra 90-80 mcg/actuation HFA aerosol inhaler 2 inh inhalation ONCE Qty: 21.4 11RF Rx Instructions: as a single dose; may repeat up to 6 doses per day (12 inhalations) cyanocobalamin (vitamin B-12) [Vitamin B-12] 1,000 mcg tablet 1,000 mcg PO DAILY fluticasone propionate [Flonase Allergy Relief] 50 mcg/actuation spray,suspension 1 spray intranasal BID Qty: 48 3RF Rx Instructions: administer into each nostril quetiapine 50 mg tablet 50 mg PO . q.h.s. Qty: 30 11RF folic acid 1 mg tablet 1 mg PO DAILY Qty: 90 3RF amlodipine 5 mg tablet 5 mg PO DAILY Qty: 90 3RF atorvastatin 10 mg tablet 10 mg PO DAILY Qty: 90 3RF hydrochlorothiazide 12.5 mg tablet 12.5 mg PO . q.a.m. Qty: 90 3RF escitalopram oxalate 20 mg tablet 20 mg PO DAILY Qty: 90 3RF lisinopril 40 mg tablet 40 mg PO DAILY Qty: 90 1RF Follow-up/Referrals: Magdy Webber MD [Primary Care Provider] - Stand Alone Forms: Work/School Release IP Time of Disposition: 12:05
== END 2025-03-03 12:07 | disposition home or self-care (01) ==
PROVIDERS: Emergency Provider Nurse Practitioner Family; PCP Family Medicine
DX: S29.012A Strain of muscle and tendon of back wall of thorax, initial encounter (principal); X50.0XXA Overexertion from strenuous movement or load, initial encounter; Y99.0 Civilian activity done for income or pay; F17.210 Nicotine dependence, cigarettes, uncomplicated; I10 Essential (primary) hypertension; E05.90 Thyrotoxicosis, unspecified without thyrotoxic crisis or storm; E78.2 Mixed hyperlipidemia; D51.9 Vitamin B12 deficiency anemia, unspecified; Z85.51 Personal history of malignant neoplasm of bladder; Z85.528 Personal history of other malignant neoplasm of kidney
CPT/HCPCS: 71101; 99213; G0463